=== PATIENT | female | born 1990 | race Two or more races ===

== ENCOUNTER 2020-07-15 10:08 | Outpatient (REF) | payer OTHER, SELFPAY ==
[2020-07-15 16:57] LABS: Syphilis Screen Nonreactive (Nonreactive)
[2020-07-16 02:01] LABS: CT PCR NOT DETECTED (Not Detect.); NG PCR NOT DETECTED (Not Detect.)
[2020-07-16 11:22] LABS: BV Int Neg Control Negative (Negative); BV Int Pos Control Positive (Positive)
[2020-07-18 08:33] LABS: ~HepC Num1 0.11 S/CO (0.00-0.79); ~Hepatitis C Antibody Nonreactive (Nonreactive)
[2020-07-18 08:44] LABS: HIV AB/AG Nonreactive (Nonreactive)
== END 2020-07-15 10:09 | disposition home or self-care (01) ==
LOC: HO.LAB 10:08
PROVIDERS: PCP Internal Medicine; Visit Provider Advanced Practice Midwife
DX: Z01.419 Encounter for gynecological examination (general) (routine) without abnormal findings (principal); Z20.2 Contact with and (suspected) exposure to infections with a predominantly sexual mode of transmission
CPT/HCPCS: 86780; 86803; 87389; 87480; 87491; 87510; 87591; 87660; 88142

== ENCOUNTER 2020-12-02 09:40 | Outpatient (REF) | payer OTHER, SELFPAY ==
[2020-12-02 11:18] LABS: Alanine Aminotransferase 16 U/L (0-31); Albumin Level 4.4 g/dL (3.5-5.0); Alkaline Phosphatase 63 U/L (39-117); Aspartate Amino Transferase 19 U/L (5-31); Bilirubin Direct < 0.2 mg/dL (0.0-0.5); Bilirubin Total < 0.2 mg/dL (0.0-1.0); Total Protein 7.4 g/dL (6.5-8.0)
== END 2020-12-02 09:41 | disposition home or self-care (01) ==
LOC: HO.LAB 09:40
PROVIDERS: PCP Internal Medicine; Visit Provider Podiatrist
DX: B35.1 Tinea unguium (principal)
CPT/HCPCS: 36415; 80076

== ENCOUNTER 2021-01-13 11:48 | Outpatient (REF) | payer OTHER, SELFPAY ==
[2021-01-13 13:21] LABS: Alanine Aminotransferase 14 U/L (0-31); Albumin Level 4.4 g/dL (3.5-5.0); Alkaline Phosphatase 56 U/L (39-117); Aspartate Amino Transferase 19 U/L (5-31); Bilirubin Direct < 0.2 mg/dL (0.0-0.5); Bilirubin Total 0.2 mg/dL (0.0-1.0); Total Protein 7.2 g/dL (6.5-8.0)
== END 2021-01-13 11:49 | disposition home or self-care (01) ==
LOC: HO.LAB 11:48
PROVIDERS: PCP Internal Medicine; Visit Provider Podiatrist
DX: B35.1 Tinea unguium (principal)
CPT/HCPCS: 36415; 80076

== ENCOUNTER 2021-02-22 16:11 | Outpatient (REF) | payer OTHER, SELFPAY ==
[2021-02-22 17:09] LABS: Alanine Aminotransferase 9 U/L (0-31); Albumin Level 4.4 g/dL (3.5-5.0); Alkaline Phosphatase 64 U/L (39-117); Aspartate Amino Transferase 22 U/L (5-31); Bilirubin Direct 0.2 mg/dL (0.0-0.5); Bilirubin Total 0.6 mg/dL (0.0-1.0); Total Protein 7.4 g/dL (6.5-8.0)
== END 2021-02-22 16:12 | disposition home or self-care (01) ==
LOC: HO.LAB 16:11
PROVIDERS: PCP Internal Medicine; Visit Provider Podiatrist
DX: B35.1 Tinea unguium (principal)
CPT/HCPCS: 36415; 80076

== ENCOUNTER 2021-06-21 20:09 | Emergency (ER) | payer OTHER, SELFPAY ==
[2021-06-21 20:17] VITALS: BP 126/84; PULSE 84; RESP 16; TEMP 36.8; O2SAT 98; BMI 26.6
--- NOTE | 2021-06-21 21:23 | ED.BACK ---
HPI - Back Pain/Injury General Chief Complaint: Back Pain/Injury Stated Complaint: hurt your back at work Time Seen by Provider: 06/21/21 21:23 History of Present Illness HPI Narrative: Patient is a 31-year-old male presents today with having back pain. The back pain occurred after lifting a heavy patient earlier today. Patient is an EMT. Patient denies any bowel urinary incontinence. There is no focal. Ambulatory. Pain worsen with certain position. No systemic complaint otherwise. Patient from home. History of ACL tears. History of ADHD Related Data Previous Rx's Medication Instructions Recorded cyclobenzaprine 10 mg tablet 10 mg PO TID PRN #14 tab 06/21/21 ibuprofen 400 mg tablet 400 mg PO Q6H PRN #20 tab 06/21/21 Allergies Allergy/AdvReac Type Severity Reaction Status Date / Time No Known Allergies Allergy Verified 10/04/20 10:29 Review of Systems Review of Systems: Positive back pain No bowel urinary incontinence No focal weakness All system reviewed otherwise negative Yes all other systems are reviewed and are negative [facility] Past Medical History Medical History (Updated 06/21/21 @ 21:27 by Marlene Ledesma MD) ADHD Nose abnormality Surgical History No history of previous surgery Family History Family History Father No problems noted. Mother No problems noted. Social History Social History Alcohol intake: current Alcohol intake frequency: holidays/special occasions only Advance Directives: No Advance Directives Information Provided: Yes Patient : No Sexual orientation: Lesbian/Cruz/Homosexual Gender identity: Female Physical Exam Vital Signs: Vital Signs: Last Vital Signs Temp 98.3 F 06/21/21 20:17 Pulse 84 06/21/21 20:17 Resp 16 06/21/21 20:17 BP 126/84 06/21/21 20:17 Pulse Ox 98 06/21/21 20:17 Body Mass Index 26.6 Appearance: Alert. Oriented X3. No acute distress. Eyes: Pupils equal, round and reactive to light. ENT: Pharynx normal. Neck: Normal inspection. Neck supple. No lymph nodes noted. No crepitus CVS: Normal heart rate and rhythm. Pulses normal. Normal S1 and S2 Respiratory: No respiratory distress. Breath sounds normal. No Wheezing. No rales Abdomen: Soft and nontender. No rigidity. No distention. good BS x4 Skin: Skin warm and dry. Normal skin color. Normal skin turgor. Extremities: No lower extremity edema. Neurovascular intact to all extremities. No Lacerations. No Rash Neuro: Oriented X 3. No motor deficit. No sensory deficit. Moving all extermities. No slurred speech MDM - Back Pain/Injury MDM Narrative Medical decision making narrative: Well appearing. Neurologically intact. No bowel urinary incontinence. Happen after lifting a heavy patient. Will discharge patient home with Motrin and Flexeril. Close follow-up with [facility]. No evidence for cauda equina syndrome. No trauma. Patient is stable condition with discharge home. Differential Diagnosis Differential diagnosis: Likely strain of lumbar region Discharge Plan Discharge Clinical Impression: Strain of lumbar region Patient Disposition: Home, Self-Care Instructions: Acute Low Back Pain (ED) Additional Instructions: Please follow-up with [facility]. Prescriptions: New cyclobenzaprine 10 mg tablet 10 mg PO TID PRN (Reason: pain) Qty: 14 RF: 0 ibuprofen 400 mg tablet 400 mg PO Q6H PRN (Reason: pain) Qty: 20 RF: 0 Referrals: [facility] [Provider Group] - 2 days Stand Alone Forms: Work/School Release
== END 2021-06-21 21:55 | disposition home or self-care (01) ==
PROVIDERS: Emergency Provider Emergency Medicine Emergency Medical Services; PCP Internal Medicine
DX: S39.012A Strain of muscle, fascia and tendon of lower back, initial encounter (principal); X50.0XXA Overexertion from strenuous movement or load, initial encounter
CPT/HCPCS: 99283

== ENCOUNTER → 2021-06-22 12:20 | Outpatient (BNVA) | payer OTHER, SELFPAY | PROVIDERS: Visit Provider Internal Medicine | DX: S39.012A Strain of muscle, fascia and tendon of lower back, initial encounter (principal); X58.XXXA Exposure to other specified factors, initial encounter | CPT/HCPCS: 99202 ==

== ENCOUNTER → 2021-06-27 15:04 | Outpatient (BNVA) | payer OTHER, SELFPAY | PROVIDERS: Visit Provider Physician Assistant Medical | DX: S39.012A Strain of muscle, fascia and tendon of lower back, initial encounter (principal); X58.XXXA Exposure to other specified factors, initial encounter | CPT/HCPCS: 99213 ==

== ENCOUNTER → 2021-07-10 14:52 | Outpatient (BNVA) | payer OTHER, SELFPAY | PROVIDERS: Visit Provider Physician Assistant Medical | DX: S39.012D Strain of muscle, fascia and tendon of lower back, subsequent encounter (principal); X58.XXXD Exposure to other specified factors, subsequent encounter | CPT/HCPCS: 99213 ==

== ENCOUNTER → 2021-07-24 14:07 | Outpatient (BNVA) | payer OTHER, SELFPAY | PROVIDERS: Visit Provider Physician Assistant Medical | DX: S39.012D Strain of muscle, fascia and tendon of lower back, subsequent encounter (principal); X58.XXXD Exposure to other specified factors, subsequent encounter | CPT/HCPCS: 99213 ==

== ENCOUNTER 2021-08-04 14:00 | Outpatient (RCR) | payer OTHER, SELFPAY ==
--- NOTE | 2021-07-05 16:06 | MHC.PT.EP ---
[facility] [place] Office [place] Office [place] Office [address] Macario Salazar [address] [phone] F: [phone] F: [phone] F: [phone] F: [phone] Physical Therapy Plan of Care Date of Evaluation: Date of Surgery: Diagnosis: lumbar strain Assessment: 31 y/o F referred to PT from [facility] for lumbar strain. 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 While performing the stretcher lift to the ambulance, the stretcher wheels got stuck and did not drop. Therefore the lift was more weight than anticipated and felt like she tweaked her back. She is OOW currently (no light duty option). Currently pain and difficulty with flexing spine, bending, don/doffing shoes, lifting, sitting, sleeping. Examination shows decreased lumbar AROM, pt maintains lordosis throughout, decreased B LE strength (pt 9 months s/p L ACL repair), increased pain, and impaired gait pattern. Recommend PT 2x/week for 5 weeks to address impairments, implement HEP, and optimize functional mobility. Frequency and Duration: The patient will be seen 2x/week for 4 weeks Short Term Goals: 3 weeks 1. I with HEP 2. Pt will improve lumbar AROM by 25% to facilitate dressing Baby Doctor Goals: 4 weeks 1. I with HEP and self management of sx 2. Pt will be able to lift >25# from knees to chest with pain < 3/10 and proper mechanics 3. Improve lumbar AROm to WNL so pt can sit > 45 min with pain < 3/10 Treatment Plan: Modalities to reduce pain, spasms and effusion. Manual therapy to restore motion and function. Therapeutic exercise to improve strength and flexibility. Neuromuscular re-education for posture and balance. Therapeutic activities to return to functional activities of daily living. Electronically signed by: Tania Choudhury PT Please sign and return to therapist. Thank you for your referral.
--- NOTE | 2021-08-08 09:07 | MHC.PT.DC ---
[facility] [place] [facility] [place] Office [place] Office [address] Macario Salazar [address] [phone] F: [phone] F: [phone] F: [phone] F: [phone] Physical Therapy Discharge Report Diagnosis: lumbar strain Date of Surgery: Date of Evaluation: 07/05/21 Date of Discharge: 08/04/21 Treatments to Date: 8 Cancellations to Date: 0 No Shows to Date: 0 Discharge Status: Achieved Goals Improved Function Independent with HEP Discharge Summary: Pt is without pain, 5/5 strength, and improved functional mobility. She has met all goals and appropriate for d/c. Electronically signed by: Tania Choudhury PT Please sign and return to therapist. Thank you for your referral.
== END 2021-08-08 09:08 | disposition home or self-care (01) ==
LOC: HO.PT 14:00
PROVIDERS: Visit Provider Physician Assistant Medical
DX: S39.012D Strain of muscle, fascia and tendon of lower back, subsequent encounter (principal)
CPT/HCPCS: 97110; 97112; 97161; 97530

== ENCOUNTER → 2022-06-13 14:24 | Outpatient (BNVA) | payer SELFPAY | PROVIDERS: Visit Provider Physician Assistant | DX: Z02.79 Encounter for issue of other medical certificate (principal) ==